=== PATIENT | male | born 1960 | race Hispanic/Latino ===

== ENCOUNTER 2023-03-20 07:15 | Day surgery (SDC) | payer MEDICAID ==
[2023-03-10 14:44] LABS: BILIRUBIN,URINE NEGATIVE (NEGATIVE); COLOR,URINE YELLOW (YELLOW); GLUCOSE, URINE (UA) 300 mg/dL (NEGATIVE); KETONES,URINE NEGATIVE (NEGATIVE); LEUKOCYTE ESTERASE ,URINE 500 Leu/uL (NEGATIVE); NITRATE,URINE NEGATIVE (NEGATIVE); OCCULT BLOOD,URINE MODERATE (NEGATIVE); PH,URINE 5.5 (5.0-8.0); PROTEIN,URINE 100 mg/dL (NEGATIVE); UROBILINOGEN,URINE 0.2 mg/dL (0.2-1.0)
[2023-03-10 14:45] LABS: ADD UA MICROSCOPIC YES; APPEARANCE,URINE HAZY (CLEAR)
[2023-03-10 14:54] LABS: BACTERIA,URINE MANY /HPF (None Seen); MUCUS,URINE RARE LPF (None Seen); SQUAMOUS EPITHELIAL CELL,UR FEW /HPF (0-2); WBC CLUMP MOD /HPF (0-1); WBC,URINE TNTC /HPF (0-1)
[2023-03-10 14:58] LABS: BASOPHILS # (AUTO) 0.05 K/uL (0.00-0.20); BASOPHILS % (AUTO) 0.5 % (0.0-5.0); EOSINOPHILS # (AUTO) 0.52 K/uL (0.00-0.70); HEMATOCRIT 37.9 % (42-54); IMMATURE GRANULOCYTE ABSOLUTE 0.05 K/uL (0-1); LYMPHOCYTES # (AUTO) 1.5 K/uL (1.0-4.8); LYMPHOCYTES % (AUTO) 14.9 % (21.0-51.0); MEAN CORPUSCULAR HEMOGLOBIN 28.7 pg (27.0-33.0); MEAN CORPUSCULAR HGB CONC 31.4 g/dL (32.0-36.0); MEAN CORPUSCULAR VOLUME 91.3 fL (79-99); MONOCYTES # (AUTO) 0.9 K/uL (0.1-1.0); MONOCYTES % (AUTO) 8.3 % (3.0-13.0); NEUTROPHILS # (AUTO) 7.4 K/uL (1.8-7.7); NEUTROPHILS % (AUTO) 70.8 % (40.0-77.0); PLATELET COUNT (AUTO) 288 K/uL (130-400); RED BLOOD CELL COUNT(AUTO) 4.15 MIL/uL (4.50-6.20); RED CELL DISTRIBUTION WIDTH 15.6 % (11.0-15.5); WHITE BLOOD COUNT (AUTO) 10.4 K/uL (4.8-10.8)
[2023-03-10 15:07] LABS: POTASSIUM 4.4 mmol/L (3.5-5.1)
[2023-03-10 15:08] VITALS: BP 174/90; PULSE 90; RESP 21
[2023-03-10 15:10] LABS: INR < 0.93 (0.85-1.15); PROTHROMBIN TIME 10.5 SEC (9.6-11.6)
[2023-03-10 15:11] LABS: PARTIAL THROMBOPLASTIN TIME 29.9 SEC (26.3-35.5)
[2023-03-20] VITALS (20 sets, daily range): BP systolic 115–158; BP diastolic 71–89; PULSE 83–113; RESP 14–18
[~2023-03-20] VITALS: Ht 171.4 cm; Wt 112.9 kg
[~2023-03-20 07:15] MED LIST: AEC81 PO; ALLO100T PO; AMLO-258 PO; ATOR40TA69 PO; CHOL2000 PO; DAPA5TAB PO; FERR325T29 PO; FOLI1TAB85 PO; GLYB5TAB8 PO; LOSA100T59 PO; TAMS-1 PO; TICA90TA PO
[2023-03-20] MEDS ORDERED: LEVOFLOXACIN 500 MG/D5W 100 ML 100 ML ONE ×2 (08:16→10:45)
[2023-03-20] MEDS: 0.9%NACL 1000ML 1,000 ML IV ONE (08:47)
[2023-03-20] MEDS ORDERED: LEVAQUIN PO (09:04)
[2023-03-20] MEDS ORDERED: MIDAZOLAM HCL 1 MG/ML 2ML VIAL ONE (11:37)
[2023-03-20] MEDS ORDERED: FENTANYL CITRATE PF 50 MCG/1 ML 2ML VIAL ONE ×3 (11:37→12:27)
[2023-03-20] MEDS ORDERED: LIDOCAINE PF 100MG/5ML (2%) SYRINGE 5ML ONE (11:37)
[2023-03-20] MEDS ORDERED: PROPOFOL 10 MG/ML 20ML VIAL IV ONE (11:37)
[2023-03-20] MEDS ORDERED: DEXAMETHASONE SOD PHOSPHATE 4 MG/ML 1ML VIAL ONE (11:54)
[2023-03-20] MEDS ORDERED: ONDANSETRON 4MG INJ ONE (11:54)
[2023-03-20] MEDS ORDERED: EPHEDRINE SULFATE 50 MG/ML AMPULE ONE (12:02)
[2023-03-20] MEDS: BUPIVACAINE/PF 0.25% 30ML VIAL IJ ONE (12:47)
[2023-03-20] MEDS: BACITRACIN 28.4 GM OINT TP ONE (12:48)
[2023-03-20] MEDS: METOCLOPRAMIDE 10 MG/2 ML VIAL ONE (13:45)
[2023-03-20] MEDS: IPRATROPIUM/ALBUTEROL SULFATE 3 ML SOLUTION IH STA (14:23)
== END 2023-03-20 15:30 | disposition home or self-care (01) ==
LOC: DAH 07:15
PROVIDERS: ATTEND Urology
DX: R97.20 Elevated prostate specific antigen [PSA] (principal); N47.1 Phimosis; N41.1 Chronic prostatitis; N40.0 Benign prostatic hyperplasia without lower urinary tract symptoms; I12.9 Hypertensive chronic kidney disease with stage 1 through stage 4 chronic kidney disease, or unspecified chronic kidney disease; N18.9 Chronic kidney disease, unspecified; Z79.899 Other long term (current) drug therapy; Z79.01 Long term (current) use of anticoagulants; Z86.73 Personal history of transient ischemic attack (TIA), and cerebral infarction without residual deficits; Z79.82 Long term (current) use of aspirin; Z98.890 Other specified postprocedural states
CPT/HCPCS: 80048; 85025; 85610; 85730; 87077; 87088; 87186; 81001; 36415; 71045 ×2; 93005; 54161; 55700; 82948 ×2; 88305; 76872; 94640; A6260; J1100; A4663; J7030 ×2; A4606; J3010 ×3; J1956 ×2; J0665; J3490 ×3; J2250; J2405; J2765; A4215 ×2; A4649; A4223; A4222; A4221; A4600; 93325; J2001; J2704

== ENCOUNTER → 2023-07-10 | Outpatient (CLI) | payer MEDICAID ==
[~2023-07-10] MED LIST changes: +LEVAQUIN PO
== END | disposition home or self-care (01) ==
LOC: RAH 10:15
PROVIDERS: ATTEND Student in an Organized Health Care Education/Training Program
DX: R06.00 Dyspnea, unspecified (principal); M47.815 Spondylosis without myelopathy or radiculopathy, thoracolumbar region
CPT/HCPCS: 71046